=== PATIENT | female | born 1995 | race African-American/Black ===

== ENCOUNTER 2025-02-01 22:48 | Emergency (ER) | payer MEDICARE ==
[~2025-02-01] VITALS: Ht 172.7 cm; Wt 113.4 kg
[2025-02-01] MEDS: HYDROCODONE/APAP 10-325 MG TABLET PO ONE (23:32)
[2025-02-02 01:00] VITALS: BP 122/80
[2025-02-02] MEDS ORDERED: HYDR-4209 PO (02:41)
[2025-02-02] MEDS ORDERED: CIPR7.5D RIGHT EAR (02:41)
[2025-02-02] MEDS ORDERED: NAPR-1009 PO (02:41)
[2025-02-02 03:14] VITALS: BP 122/75; O2SAT 98
== END 2025-02-02 03:00 | disposition home or self-care (01) ==
LOC: ER 22:52
DX: S93.601A Unspecified sprain of right foot, initial encounter (principal); H72.91 Unspecified perforation of tympanic membrane, right ear; Z60.2 Problems related to living alone; K21.9 Gastro-esophageal reflux disease without esophagitis; F12.90 Cannabis use, unspecified, uncomplicated; X58.XXXA Exposure to other specified factors, initial encounter; Y93.89 Activity, other specified; Y92.89 Other specified places as the place of occurrence of the external cause; Y99.8 Other external cause status
CPT/HCPCS: 70486; 73630; A4606; A4663